=== PATIENT | female | born 1965 | race Caucasian/White ===

== ENCOUNTER → 2021-04-23 | Outpatient (CLI) | payer OTHER ==
[2021-04-24 08:13] LABS: RHEUMATOID ARTHRITIS FACTOR 11.5 IU/mL (0.0-13.9); VITAMIN D, 25-HYDROXY 22.2 ng/mL (30.0-100.0)
== END ==
LOC: RAD 13:13
PROVIDERS: Nurse Practitioner Family
DX: M79.641 Pain in right hand (principal); M79.642 Pain in left hand; M25.511 Pain in right shoulder; M25.50 Pain in unspecified joint; M79.10 Myalgia, unspecified site; D89.9 Disorder involving the immune mechanism, unspecified; E55.9 Vitamin D deficiency, unspecified; R76.8 Other specified abnormal immunological findings in serum; M19.011 Primary osteoarthritis, right shoulder; M19.041 Primary osteoarthritis, right hand; M19.042 Primary osteoarthritis, left hand
CPT/HCPCS: 36415; 73030; 73130; 82550; 82728; 83520; 85652; 86140; 86200; 86431